=== PATIENT | male | born 1995 | race Caucasian/White ===

== ENCOUNTER 2020-03-22 05:15 | Emergency (ER) | payer SELFPAY ==
[~2020-03-22] VITALS: Ht 165.1 cm; Wt 63.6 kg
[2020-03-22 05:22] VITALS: Ht 165.1 cm; Wt 63.6 kg
[2020-03-22] MEDS ORDERED: AMOXICILLIN500 M1 PO (05:46)
[2020-03-22] MEDS ORDERED: NAPROSYN500 MG PO (05:46)
[2020-03-22 06:08] VITALS: BP 134/91
== END 2020-03-22 06:08 | disposition home or self-care (01) ==
LOC: D.ER 05:15
DX: K04.7 Periapical abscess without sinus (principal); K08.89 Other specified disorders of teeth and supporting structures; Z72.0 Tobacco use